=== PATIENT | female | born 1980 | race Caucasian/White ===

== ENCOUNTER 2016-10-07 09:58 | Inpatient (IN) ==
[2016-10-07] MEDS ORDERED: Famotidine 20 MG/2 ML VIAL IVP PRN (10:16)
[2016-10-07] MEDS ORDERED: Ondansetron 4 MG/2 ML VIAL IVP PRN (10:16)
[2016-10-07] MEDS ORDERED: Metoclopramide 10 MG/2 ML VIAL IVP PRN (10:16)
[2016-10-07] MEDS ORDERED: miSOPROStol 25 MCG TABLET PO PRN (10:16)
--- NOTE | 2016-10-07 10:24 | OB/GYN History & Physical ---
Date of Encounter: 10/07/16 Time of Encounter: 10:22 Assessment and Plan (1) 39 weeks gestation of Current visit: Yes Status: Acute 39 weeks 2 days admit to labor and delivery for induction of labor no complaints at this time will check a point of care glucose admission orders initiated IV fluids pain medications and epidural anesthesia upon request anticipate (2) Gestational diabetes mellitus (GDM) affecting Current visit: Yes Status: Acute blood glucose monitored throughout POC ordered (3) AMA (advanced maternal age) multigravida 35+ Current visit: Yes Status: Acute Qualifiers: Trimester: third trimester Qualified Code(s): O09.523 - Supervision of elderly multigravida, third trimester (4) Single umbilical artery Current visit: Yes Status: Acute History of Present Illness Chief complaint: IOL HPI: Ms. Garcias is a 36 year old female 39 weeks 2 days presents for scheduled induction of labor. Estimated due date 10/12/2016. She is a patient of OB Dr. Garcia. Reports sinus infection over the past several days with a mild headache today that is resolved. Denies any fever, changes in vision, abdominal pain, contractions, vaginal bleeding, or leakage of fluid. Reports her last blood glucose 124 earlier this morning. Her has been complicated with insulin dependent gestational diabetes and a 2 vessel cord. 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 Patient endorses good movement. GBS negative, HBV nonreactive, Rubella immune, other serologies reviewed and are negative. Her blood type is O positive. Her last cervical check 80/-1. Blood pressures have been normotensive throughout . Past Med Surg Social Fam HX - Past Medical History Attestation: Yes The following information was validated with the patient. Source: patient Medical history: no medical history, diabetes (gestational) Psychiatric history: depression - Past Surgical History Surgical History: other (D&C 2006) - Social History Smoking Status: Former smoker Alcohol use: none Drug use: none Obstetrical History - Pregnancies : 5 Para: 2 Term: 2 : 0 Ab's: 2 Livin Review of System OB All systems PM: reviewed and no additional remarkable complaints except as stated Exam - Constitutional Constitutional: well developed, well nourished, no acute distress, average body habitus - HEENT HEENT: EOMI, Normocephaly, Mucus Membranes Moist - Neck Neck exam: full ROM, normal inspection - Lungs Respiratory exam: CTAB - Cardiovascular Cardiovascular exam: RRR, +S1, +S2 - Abdomen Abdomen: Present: bowel sounds normal, gravid, non tender - Extremities Extremities exam: normal capillary refill, normal inspection, pedal edema (MILD) , warm Deep Tendon Reflex Grade: 2+ Normal - Uterus Uterus exam: Present: normal size Results Result Diagrams: 10/07/16 10:45 10/07/16 10:45 All other labs normal. - VTE Reasons for not Prescribing Prophylaxis: Treatment not Indicated - Low risk for VTE
[2016-10-07] MEDS ORDERED: Ringers Solution, Lactated 1,000 ML IVC SCH (10:30)
[2016-10-07 11:05] LABS: Basophils % 0.1 %; Eosinophils % 0.1 %; Hematocrit 35.3 % (35.3-44.9); Hemoglobin 12.4 g/dL (11.5-15.4); Immature Granulocytes % 0.1 % (0-4); Lymphocytes # 1.7 K/mcL (0.6-4.6); Lymphocytes % 25.9 %; Mean Corpuscular HGB Conc 35.1 g/dL (31.6-35.5); Mean Corpuscular Hemoglobin 30.1 pg (28.0-33.3); Mean Corpuscular Volume 85.7 fL (83.0-100.0); Mean Platelet Volume 11.1 fL (9.4-12.4); Monocytes # 0.4 K/mcL (0.0-1.3); Monocytes % 5.4 %; Neutrophils # 4.6 K/mcL (1.6-8.9); Platelet Count 173 K/mcL (140-400); Red Blood Count 4.12 M/mcL (3.82-4.97); Segmented Neutrophils % 68.4 %
--- NOTE | 2016-10-07 15:06 | OB Labor Progress Note ---
Date of Encounter: 10/07/16 Time of Encounter: 15:04 Labor Progress Note - Subjective Subjective: Pt reports mild discomfort with contractions. - Cervix Cervix: 4/80/-1 - Heart Tones Heart Tones: Category I - Chaires Chaires: irregular - Interventions Interventions: AROM for small amount clear fluid. IUPC placed. - Plan Plan: Continue to monitor. Epidural when requested. Anticipate .
[2016-10-07] MEDS ORDERED: Oxytocin 20 units/ LR 1000 mL 20 UNIT/1,000 ML BAG IVC SCH ×2 (15:45→21:53)
[2016-10-07] MEDS ORDERED: *HR* Ropivacaine/PF 0.2% 10 ML AMPUL EP ONE (18:33)
[2016-10-07] MEDS ORDERED: *HR* FentaNYL (PF) 100 MCG/2 ML VIAL EP ONE (18:33)
[2016-10-07] MEDS ORDERED: Ringers Solution, Lactated 500 ML IVC ONE (18:33)
[2016-10-07] MEDS ORDERED: EPHEDrine 50 MG/ML VIAL IVP PRN (18:33)
[2016-10-07] MEDS ORDERED: ROPIVACAINE HCL/PF 0.5% 30 ML VIAL ONE (18:34)
[2016-10-07] MEDS ORDERED: *HR* FentaNYL (PF) 100 MCG/2 ML VIAL ONE (18:34)
[2016-10-07] MEDS ORDERED: Epidural Premix (fent/bupiv) 110 ML EP ONE (18:35)
--- NOTE | 2016-10-07 18:37 | Anesthesia Evaluation PreOp ---
Date of Encounter: 10/07/16 Time of Encounter: 18:30 - Past History Planned Operation: Labor Epidural Cardiac History: Denies any Significant Hx Pulmonary History: Denies Any Significant HX PRIVATE DUTY LPN History: Denies Any Significant HX Other Medical History: Denies Any Significant HX, Diabetes Type II (Gestational) Anesthesia History: No Prior Anesthetic Complications, Past Anesthesia (D&C, epidural) : Yes Alcohol Use: none Drug use: none Medications and Allergies GlyBURIDE [GlyBURIDE] 1 tab PO BID 10/07/16 [History] Humalog 5 units SQ DAILY 10/07/16 [History] Vit Calc,Iron,Folic [ Vitamins] 1 tab PO DAILY 10/07/16 [ History] Allergies Penicillins Allergy (Verified 10/07/16 10:36) See Comments reports that she "stiffened up like a board and couldn't move" - Meds/Allergy Pre-op Review Medications Reviewed: Yes Allergies Reviewed: Yes Beta Blockers on Current Med List: No Anesthesia Results - Labs 10/07/16 10:45 10/07/16 10:45 Anesthesia Exam Height: 1.68m Weight: 89.9kg NPO (# of Hours): >4hr Pain Scale: 10 Pain Scale Used: Numeric (1 - 10) - HEENT Pupil (Motor): Pupils equal Mallampati: II Teeth: Normal Oral Opening: Greater than 3 - PRIVATE DUTY LPN LOC: Oriented PRIVATE DUTY LPN Motor: Normal RUE, Normal LUE, Normal RLE, Normal LLE, Normal Face PRIVATE DUTY LPN Sensory: Normal: RUE, LUE, RLE, LLE, Face - Cardiac Rhythm: Regular Murmur: None JVD: No Carotid Bruit: No - Pulmonary Breath Sounds: bilateral Clear Respiratory Effort: Symmetrical Anesthesia Assess/Plan ASA Score: 2 Modified Mohan Scale for Level of Consciousness: Cooperative, oriented, and tranquil Anesthetic Plan: Regional Monitoring Plan: Standard Monitors Recovery Plan: Other
[2016-10-07] MEDS ORDERED: Epidural Premix (fent/bupiv) 110 ML EP SCH (18:45)
--- NOTE | 2016-10-07 18:53 | Anesthesia Procedures ---
Date of Encounter: 10/07/16 Time of Encounter: 18:35 Procedures: Anesthesia - Epidural/Spinal Patient ID/Chart reviewed: Yes Patient examined: Yes OB Eval: Gestational age: 39.2 OB Eval: : 5 OB Eval: Hx Para: 2 OB Eval: Dilated at (cm): 7 OB Eval: Contractions: Non-stressed pattern Consent Obtained: Yes Supplemental Oxygen: None/Room Air Site Prep: Aseptic Technique, Sterile prep and drape, 0.5% Chlorhexidine/Alcohol Patient position: right lateral decubitus Local Anesthetic: Lidocaine 1% Amount of Local Anesthetic used: 2 Touhy Needle Gauge: 18 Touhy Needle Depth (cm): 8 Catheter Depth at Skin (cm): 0 (Catheter not placed due to need to push) Test Dose (1.5% Lido + Epi): Volume given (mls): 4 (through tuohy) Test Dose Result: Negative Loading Dose: Fentanyl (mcg): 100 Loading Dose: Other: Ropiv 0.5% 10mL Loading Dose Administered: Thru Touhy Needle Interspace Used: L3-L4 Loss of Resistance (VIC): Yes Blood: No CSF: No Paresthesia: No Procedure: Patient tolerated well. x1 attempt at L3-4. Pt 7cm when called for epidural. Patient reported feeling of needing to push during procedure just prior to VIC. Bolus dose given and patient checked by RN. 10cm at end of procedure. Vitals + FHT's: VSS and FHR stable throughout procedure. See nursing documentation.
--- NOTE | 2016-10-07 19:18 | OB/GYN Procedure Note ---
Delivery - Delivery Date: 10/07/16 Provider: Aaliyah Garcia Intrapartum events: none Delivery induction: AROM, oxytocin, misoprostol Delivery monitor: external FHT, external uterine, internal uterine Anesthesia: epidural Estimated Blood Loss: 300 - Infant (s) Infant A Infant Delivery Date: 10/07/16 Infant Delivery Time: 18:53 Presentation: vertex Position: JOSHUA Route of delivery: Gender: Female Viability: Viable Pounds: 7 Ounces: 9 Weight Gram: 3.435 kg at 1 minute: 8 at 5 mins: 9 Shoulder Dystocia: not encountered Specimens collected: cord blood Placenta: spontaneous Cord: nuchal cord, 3 umbilical vessels, nuchal reduced - Repair Episiotomy: none Laceration Description: Labial (anterior) - Complications Delivery complications: none Delivery comments: Called to room with patient complete and +2 station. Under maternal effort she delivered a viable female weighing 7 lbs. 9 oz. and Apgars 8 and 9 at one and 5 minutes respectively over an intact perineum. Following delivery of the head the infant was bulb suctioned. A loose nuchal cord was noted and reduced. The shoulders delivered with maternal effort. Infant was placed on mom' s abdomen. Cord was clamped and cut. Cord blood was collected. Placenta delivered spontaneously, complete, and intact with a three-vessel cord. Mother and infant recovering in the LDR in stable condition. - Disposition Mom disposition: stable in LDR [place] disposition: stable in LDR
[2016-10-07] MEDS ORDERED: Acetaminophen 325 MG TABLET PO PRN (21:53)
[2016-10-07] MEDS ORDERED: Ibuprofen 600 MG TABLET PO PRN (21:53)
--- NOTE | 2016-10-08 08:52 | Discharge Summary ---
Date of Encounter: 10/08/16 Time of Encounter: 08:50 - Discharge Diagnosis (1) Vaginal delivery Priority: Primary Status: Acute Comments: Pt states feeling well, pain well managed on po pain medication.. Bottlefeeding. Desires discharge - Discharge Medications Home Medications: GlyBURIDE [GlyBURIDE] 1 tab PO BID 10/07/16 [History] Humalog 5 units SQ DAILY 10/07/16 [History] Vit Calc,Iron,Folic [ Vitamins] 1 tab PO DAILY 10/07/16 [ History] Allergies/Adverse Reactions: Allergies Penicillins Allergy (Verified 10/07/16 10:36) See Comments reports that she "stiffened up like a board and couldn't move" Data Procedures and tests throughout hospitalization: Laboratory Tests 10/07/16 10/07/16 10:45 10:45 WBC 6.7 RBC 4.12 Hgb 12.4 Hct 35.3 MCV 85.7 MCH 30.1 MCHC 35.1 RDW 14.0 Plt Count 173 MPV 11.1 Immature Gran % 0.1 Seg Neutrophils % 68.4 Lymphocytes % 25.9 Monocytes % 5.4 Eosinophils % 0.1 Basophils % 0.1 Neutrophils # 4.6 Lymphocytes # 1.7 Monocytes # 0.4 Eosinophils # 0.0 Basophils # 0.0 Glucose 80 Labs on day of discharge: Labs from last 24 hours 10/07/16 10/07/16 10:45 10:45 WBC 6.7 RBC 4.12 Hgb 12.4 Hct 35.3 MCV 85.7 MCH 30.1 MCHC 35.1 RDW 14.0 Plt Count 173 MPV 11.1 Immature Gran % 0.1 Seg Neutrophils % 68.4 Lymphocytes % 25.9 Monocytes % 5.4 Eosinophils % 0.1 Basophils % 0.1 Neutrophils # 4.6 Lymphocytes # 1.7 Monocytes # 0.4 Eosinophils # 0.0 Basophils # 0.0 Glucose 80 Date of admission: 10/07/16 09:58 Primary care physician: Yvette Do CNP Consults: 10/07/16 21:53 Consult to [employer] [CONS] Routine Comment: Vaginal delivery, consult needed Discharging clinician: Magi Sharma Anticipated date of discharge: 10/08/16 - Patient Status Disposition: Home, Self-Care Condition: Good Functional capacity at discharge: independent ambulation Overall status at discharge: patient is back to baseline - Discharge Instructions Instructions: Your [place]'s Appearance (DC), Normal Growth and Development of Newborns (GEN) Follow Up With: Yvette Do CNP [Primary Care Provider] - Aaliyah Garcia DO [Partnered Physician] - 11/10/16 1:30 pm (PP follow-up appointment) Additional Instructions: Perineal Care: Always wipe front to back Change your pad frequently Use your anthony bottle with warm water and spray front to back Do not douche, use tampons, have sexual intercourse or put anything in your vagina for 4-6 weeks after delivery Bleeding: Vaginal bleeding can last up to 6 weeks Your menstrual period may return as early as 6 weeks after you are discharged from the hospital [place]/Stitches Care: Vaginal Delivery Vaginal stitches will dissolve within 4-6 weeks Follow perineal care instructions Care Stitches will dissolve on their own If you have domenic, they will need to be removed in the doctors office within 5-7 days. You may shower with stitches or domenic Drip plan or soapy water over the incision to clean. Pat dry gently with a clean towel. Make sure you completely dry under the skin folds DO NOT USE powders, lotions, rubbing alcohol or hydrogen peroxide on or around your incision. This will slow your wound healing It is normal to have soreness, burning, tingling, itchiness and/or numbness as your incision heals Activity: Rest frequently Do not lift anything heavier than a gallon of milk, up to 10-15 pounds No driving for 1-2 weeks for Vaginal delivery No driving for 2-4 weeks for delivery Take stairs slowly, one at a time Gradually increase your daily activity until you are back to your normal routine Do not exercise until you have had your follow-up appointment Bathing: Take a shower daily Do not take a tub bath for the first 4 weeks Diet: Drink plenty of water and fruit juices Eat a well-balanced diet with foods high in fiber such as fruits and vegetables Depression: Your hormones have a major impact on your feelings and emotions. Hormone imbalance may cause changes in your mood, creating unfamiliar thoughts and actions. Support is available to help you understand and cope with these feelings and mood changes. If you answer yes to any of the following questions, please call your health care provider: Are you having trouble sleeping? Are you feeling isolated? Have you lost your appetite? Are you having thoughts of hurting yourself or others? WARNING SIGNS: Heavy bleeding from the vagina (blood is bright red and soaks a sanitary pad in an hour or less.) Passing a blood clot larger than your fist Discharge from the vagina that has a bad odor Temperature over 100.4 F, or if you feel cold and have chills An episiotomy site that is warm, swollen or oozing. Use a mirror if needed Urination (pee) that is painful, very red and swollen or leaking fluid An incision that is painful, very red and swollen and leaking fluid An incision that has come open Breasts that are painful or full with flu like symptoms Redness, warmth or swelling in the calf of your leg Trouble breathing, dizziness, visual disturbance or faintness *Notify your health care provider immediately or go to the nearest Emergency Room if you experience any of the above signs.* To contact the nurses station 24 hours a day, For non-urgent, routine questions, please call the office at - Diet and Activity Activity: resume usual activities as tolerated Diet: regular diet Hospital Course Reason for admission: IUP at term Delivery: Episiotomy: none Laceration: other (labial) Other procedures: none complications: none Discharge diagnosis: IUP at term delivered baby: female Hospital course: Delivery - Delivery Date: 10/07/16 Provider: Aaliyah Garcia Intrapartum events: none Delivery induction: AROM, oxytocin, misoprostol Delivery monitor: external FHT, external uterine, internal uterine Anesthesia: epidural Estimated Blood Loss: 300 - Infant (s) Infant A Delivery Date: 10/07/16 Infant Delivery Time: 18:53 Presentation: vertex Position: JOSHUA Route of delivery: Gender: Female Viability: Viable Pounds: 7 Ounces: 9 Weight Gram: 3.435 kg at 1 minute: 8 at 5 mins: 9 Shoulder Dystocia: not encountered Specimens collected: cord blood Placenta: spontaneous Cord: nuchal cord, 3 umbilical vessels, nuchal reduced - Repair Episiotomy: none Laceration Description: Labial (anterior) - Complications Delivery complications: none Delivery comments: Called to room with patient complete and +2 station. Under maternal effort she delivered a viable female weighing 7 lbs. 9 oz. and Apgars 8 and 9 at one and 5 minutes respectively over an intact perineum. Following delivery of the head the was bulb suctioned. A loose nuchal cord was noted and reduced. The shoulders delivered with maternal effort. Infant was placed on mom' s abdomen. Cord was clamped and cut. Cord blood was collected. Placenta delivered spontaneously, complete, and intact with a three-vessel cord. Mother and infant recovering in the LDR in stable condition. - Disposition Mom disposition: stable in PP. Appropriate for discharge Time Attestation: Total time spent providing and/or coordinating discharge services: Time Spent: Less than 30 minutes Exam - Constitutional Vitals: Temp Pulse Resp BP Pulse Ox 97.8 F 89 14 117/68 97 10/08/16 07:55 10/08/16 07:55 10/08/16 07:55 10/08/16 07:55 10/08/16 07:55 General appearance IM: A&O X 3 - Respiratory Respiratory exam: Present: CTAB - Cardiovascular Cardiovascular exam IM: Present: RRR, +S1, +S2 - GI/Abdominal GI/Abdominal exam IM: normal bowel sounds - Uterine Tone: Firm Uterus Position: Midline - Extremities Exam Extremities exam IM: Present: normal capillary refill, normal inspection - Neurological Exam Neurological exam: normal gait, oriented X3 - Psychiatric Additional comments: reports good mood.
[2016-10-08] MEDS ORDERED: Prenatal Vit/FA 1 EACH TABLET PO SCH (09:00)
[2016-10-08 16:58] VITALS: BP 137/82
== END 2016-10-08 20:15 | disposition home or self-care (01) | DRG 775 ==
LOC: 1NENULAB 09:58 → 1NENUOBS 21:52
PROVIDERS: ADMIT Obstetrics & Gynecology; ATTEND Obstetrics & Gynecology